=== PATIENT | female | born 1980 ===

== ENCOUNTER 2020-04-28 13:25 | Inpatient (IN) | payer OTHER ==
[~2020-04-28] VITALS: Ht 172.7 cm; Wt 98.4 kg
[2020-04-28] MEDS ORDERED: PRENATAL TABLE1 EAC3 PO (15:23)
[2020-05-03] MEDS ORDERED: NAPR500T14 PO (09:08)
== END 2020-05-03 12:00 | disposition home or self-care (01) | DRG 807 ==
LOC: LDR 13:25 → OB/GYN 04-29 10:40
PROVIDERS: ADMIT Obstetrics & Gynecology; ATTEND Obstetrics & Gynecology
PROC: 4A0HXFZ Measurement of Products of Conception, Cardiac Rhythm, External Approach (ICD-10-PCS; 2020-04-28)
PROC: 10E0XZZ Delivery of Products of Conception, External Approach (ICD-10-PCS; principal; 2020-05-01)
PROC: 0HQ9XZZ Repair Perineum Skin, External Approach (ICD-10-PCS; 2020-05-01)
DX: O60.14X0 Preterm labor third trimester with preterm delivery third trimester, not applicable or unspecified (principal); Z37.0 Single live birth; O13.4 Gestational [pregnancy-induced] hypertension without significant proteinuria, complicating childbirth; O70.0 First degree perineal laceration during delivery; Z3A.35 35 weeks gestation of pregnancy